=== PATIENT | female | born 1990 | race Caucasian/White ===

== ENCOUNTER 2021-11-25 22:15 | Emergency (ER) | payer OTHER ==
[~2021-11-25] VITALS: Ht 162.6 cm; Wt 53.6 kg
[2021-11-25 22:22] VITALS: TEMP 98.6
[2021-11-25] MEDS ORDERED: TESSALON PERLE200 MG PO (22:53)
[2021-11-25 22:58] VITALS: BP 115/81; PULSE 89
== END 2021-11-25 23:02 | disposition home or self-care (01) ==
LOC: COL.ER 22:15
DX: R05.1 Acute cough (principal)